=== PATIENT | female | born 1960 | race Caucasian/White ===

== ENCOUNTER 2016-11-10 14:34 | Emergency (ER) | payer BC ==
[~2016-11-10] VITALS: Ht 170.2 cm; Wt 75.0 kg
[~2016-11-10 14:34] MED LIST: AMLO5TAB4 PO; AUG875 PO; METO-448 PO; TRAZ50TA18 PO
[2016-11-10 14:59] VITALS: Ht 170.2 cm; Wt 75.0 kg
[2016-11-10] MEDS ORDERED: HYDROmorphONE 2 MG/ML SYG IV ONE (15:30)
[2016-11-10] MEDS ORDERED: ONDANSETRON 4 MG INJ IV ONE (15:30)
[2016-11-10] MEDS ORDERED: ONDANSETRON 4 MG INJ IV STA (16:02)
[2016-11-10] MEDS ORDERED: HYDROmorphONE 1 MG/ML SYG IV STA ×2 (16:02→17:59)
--- NOTE | 2016-11-10 16:43 | RADRPT ---
PROCEDURE: XR Chest. CLINICAL INDICATION: chest pain TECHNIQUE: Single frontal view of the chest was obtained COMPARISON: None FINDINGS: The heart and mediastinum are within normal limits. The lungs are clear. There is no pleural effusion or pneumothorax. There is a partially visualized fracture of the left humeral head and neck. RPTAT: AA IMPRESSION: Partially visualized fracture of the left humeral head and neck. No focal infiltrate. .Harry Chavez MD, MD Date Time Electronically viewed and signed by .Harry Chavez MD, on 11/10/2016 16:42 .S/
--- NOTE | 2016-11-10 16:53 | RADRPT ---
PROCEDURE: Left Shoulder Series CLINICAL INDICATION: Left shoulder pain after fall TECHNIQUE: Two views of the left shoulder are available for review. COMPARISON: None available FINDINGS: There is a mild to moderately displaced left proximal humeral fracture is involve of the neck and he ad of the left humerus, extending into the greater trochanter. The glenohumeral joint appears withi n normal limits. The acromioclavicular joint is unremarkable. The visualized portions of the left chest wall and ribs are intact. There is mild soft tissue swelling in the region of the shoulder. IMPRESSION: 1. Proximal left humerus fracture. RPTAT: KK .Mani Templeton MD, MD Date Time Electronically viewed and signed by .Mani Templeton MD, on 11/10/2016 16:53 .B/
--- NOTE | 2016-11-10 17:05 | RADRPT ---
PROCEDURE: XR right rib series. CLINICAL INDICATION: Rib pain TECHNIQUE: 3 views of the rib cage are available for review COMPARISON: No comparison study available FINDINGS: The ribs are normal in mineralization and architecture. No fracture is identified. No osseous lesi on is identified. The visualized lung brady are unremarkable. The pleural spaces are unremarkable . No effusion or pneumothorax is identified. IMPRESSION: Unremarkable examination RPTAT: HGDB .Gavin Delgado MD, MD Date Time Electronically viewed and signed by .Gavin Delgado MD, on 11/10/2016 17:05 .B/
[2016-11-10] MEDS ORDERED: HYDR-902 PO (17:54)
--- NOTE | 2016-11-10 18:17 | ERD ---
ER Documentation Chief Complaint Date/Time DATE: 11/10/16 TIME: 18:13 Chief Complaint BIB [facility] FOR EVAL OF LEFT SHOULDER INJURY GLF. +DEFORMITY HPI This a 56-year-old female who had a fall at midnight last night the patient was in the kitchen and was walking and slipped and fell and she landed on her left shoulder. No head injury no loss of consciousness. Denies any headache denies neck pain denies any numbness weakness denies focal neurological complaints denies back pain abdominal pain pelvic pain or other extremity pain. The pain is described as sharp in the left shoulder and worse with movement better with rest. She is also complaining of some mild pain to her left anterior rib cage no shortness of breath ROS All systems reviewed and are negative except as per history of present illness. Medications Home Meds Active Scripts Hydrocodone/Acetaminophen (Strawberry 10-325 Tablet) 1 Each Tablet, 1 TAB PO Q6H Y for PAIN, #20 TAB Prov:JERSEY HART DO 11/10/16 Amoxicillin-Clavulanate K* (Augmentin*) 875 Mg Tab, 875 MG PO BID for 7 Days, TAB Prov:AMINATA DICKSON MD 10/23/15 Reported Medications Amlodipine Besylate* (Norvasc*) 5 Mg Tablet, 5 MG PO DAILY, TAB 03/18/15 Trazodone Hcl* (Trazodone Hcl*) 50 Mg Tablet, 50 MG PO HS, TAB 03/18/15 Metoprolol Tartrate* (Lopressor*) 25 Mg Tab, 25 MG PO BID, TAB 03/18/15 Allergies Allergies: Coded Allergies: No Known Allergy (Unverified , 10/23/15) PMhx/Soc History of Surgery: Yes (TONSILLECTOMY) Anesthesia Reaction: No Hx Miscellaneous Medical Probl: Yes (RAPID "HEART BEAT" AND HYPERTENSION) Hx Alcohol Use: Yes (SOCIAL DRINKER) Hx Substance Use: No Hx Tobacco Use: Yes FmHx Family History: No coronary disease Physical Exam Vitals Vital Signs Date Time Temp Pulse Resp B/P Pulse Ox O2 Delivery O2 Flow Rate FiO2 11/10/16 16:00 86 18 124/82 99 Room Air 11/10/16 14:59 98.1 101 18 108/82 99 Physical Exam Const: Well-developed, well-nourished Head: Atraumatic, normocephalic Eyes: Normal Conjunctiva, PERRLA, EOMI, normal sclera, no nystagmus ENT: Normal External Ears, Nose and Mouth, moist mucus membranes. Neck: Full range of motion. No meningismus, no lymphadenopathy. Resp: Clear to auscultation bilaterally, no wheezing, rhonchi, rales Cardio: Regular rate and rhythm, no murmurs, S1 S2 present, there is some mild tenderness to the left anterior rib cage no crepitance Abd: Soft, non tender x 4, non distended. Normal bowel sounds, no guarding or rebound, no pulsitile abdominal masses or bruits Skin: No petechiae or rashes, no ecchymosis , no maculopapular rash Back: No midline or flank tenderness Ext: No cyanosis, or edema, FROM x 3 tenderness to the left humeral head and neck area with some swelling decreased range of motion secondary to pain, normal inspection, neurovascularly intact x 4 Neur: Awake and alert, STR 5/5 x 4, sensation intact x 4, no focal findings, cerebellum intact Psych: Normal Mood and Affect Results 24 hrs Current Medications Medications (Trade) Dose Ordered Sig/Veena Route PRN Reason Start Time Stop Time Status Last Admin Dose Admin Hydromorphone HCl (Dilaudid) 1 mg ONCE ONCE IV 11/10/16 15:30 11/10/16 15:31 DC 11/10/16 15:53 Ondansetron HCl (Zofran Inj) 4 mg ONCE ONCE IV 11/10/16 15:30 11/10/16 15:31 DC 11/10/16 15:52 Hydromorphone HCl (Dilaudid) 1 mg ONCE STAT IV 11/10/16 16:02 11/10/16 16:03 DC 11/10/16 16:19 Ondansetron HCl (Zofran Inj) 4 mg ONCE STAT IV 11/10/16 16:02 11/10/16 16:03 DC 11/10/16 16:19 Hydromorphone HCl (Dilaudid) 1 mg ONCE STAT IV 11/10/16 17:59 11/10/16 18:00 DC Procedures/MDM PROCEDURE: XR Chest. CLINICAL INDICATION: chest pain TECHNIQUE: Single frontal view of the chest was obtained COMPARISON: None FINDINGS: The heart and mediastinum are within normal limits. The lungs are clear. There is no pleural effusion or pneumothorax. There is a partially visualized fracture of the left humeral head and neck. RPTAT: AA IMPRESSION: Partially visualized fracture of the left humeral head and neck. No focal infiltrate. .Harry Chavez MD, Date Time Electronically viewed and signed by .Harry Chavez MD, MD on 11/10/2016 16: 42 .S/ CC: JERSEY HART DO PROCEDURE: XR right rib series. CLINICAL INDICATION: Rib pain TECHNIQUE: 3 views of the rib cage are available for review COMPARISON: No comparison study available FINDINGS: The ribs are normal in mineralization and architecture. No fracture is identified. No osseous lesion is identified. The visualized lung brady are unremarkable. The pleural spaces are unremarkable. No effusion or pneumothorax is identified. IMPRESSION: Unremarkable examination RPTAT: DB .Gavin Delgado MD, Date Time Electronically viewed and signed by .Gavin Delgado MD, on 11/10/2016 17:05 .B/ CC: JERSEY HART DO PROCEDURE: Left Shoulder Series CLINICAL INDICATION: Left shoulder pain after fall TECHNIQUE: Two views of the left shoulder are available for review. COMPARISON: None available FINDINGS: There is a mild to moderately displaced left proximal humeral fracture is involve of the neck and head of the left humerus, extending into the greater trochanter. The glenohumeral joint appears within normal limits. The acromioclavicular joint is unremarkable. The visualized portions of the left chest wall and ribs are intact. There is mild soft tissue swelling in the region of the shoulder. IMPRESSION: 1. Proximal left humerus fracture. RPTAT: KK .Mani Templeton MD, MD Date Time Electronically viewed and signed by .Mani Templeton MD, MD on 2016 16:53 .B/ CC: JESREY HART DO Patient was given a sling will follow up with orthopedics Departure Diagnosis: Primary Impression: Fracture, humerus closed Encounter type: initial encounter Humerus Location: proximal Fracture morphology: unspecified fracture morphology Laterality: left Qualified Code : S42.202A - Closed fracture of proximal end of left humerus, unspecified fracture morphology, initial encounter Condition: Stable Patient Instructions: Fracture, Upper Extremity Referrals: PAULINA LUDWIG MD, APOSTOLOS A. DO Nov 10, 2016 18:17
[2016-11-10] MEDS ORDERED: HYDROmorphONE 1 MG/ML SYG IM STA (18:47)
[2016-11-10 19:42] VITALS: BP 119/73; PULSE 83; RESP 18
== END 2016-11-10 19:43 | disposition home or self-care (01) ==
LOC: FTE 14:34 → E/R 19:43
DX: S42.202A Unspecified fracture of upper end of left humerus, initial encounter for closed fracture (principal); R40.2252 Coma scale, best verbal response, oriented, at arrival to emergency department; I10 Essential (primary) hypertension; R40.2362 Coma scale, best motor response, obeys commands, at arrival to emergency department; R40.2142 Coma scale, eyes open, spontaneous, at arrival to emergency department; W01.0XXA Fall on same level from slipping, tripping and stumbling without subsequent striking against object, initial encounter; Y92.000 Kitchen of unspecified non-institutional (private) residence as the place of occurrence of the external cause; Z87.891 Personal history of nicotine dependence
CPT/HCPCS: 71010; 71100; 73030; 96372; 96374; 96375; 96376; 99284; J1170; J2405